=== PATIENT | male | born 1945 | race Caucasian/White ===

== ENCOUNTER 2021-03-09 17:26 | Observation (INO) ==
--- NOTE | 2021-03-09 18:24 | Emergency Department Note ---
GI Bleed HPI <Rashi Holbrook PA-C - Last Filed: 03/09/21 19:49> General Chief complaint: Rectal Bleed Stated complaint: Rectal Bleed Time Seen by Provider: 03/09/21 17:50 Source: patient Mode of arrival: ambulatory Limitations: no limitations History of Present Illness HPI Narrative: Narrative: 75-year-old male with a history of hypothyroidism, osteoarthritis, GERD and hypertension who was seen in the urgent care clinic today represents complaining of bright red blood per rectum. He was seen in the urgent care earlier today and had these findings he refused rectal exam or anoscopy at the time he had a CBC, CMP and PT and INR taken which were all normal. He had a stable hemoglobin. He went home and the clinic called him to check up on him and he said he was getting lightheaded and had more bouts of bright red blood per rectum. He was told to come to the emergency room for further evaluation. He says he has no pain with these bowel movements no pain in his abdomen no nausea, vomiting or fever. He reportedly did have a slightly elevated white count on his CBC. He states he otherwise is in no distress but he has been passing bright red blood per rectum all day. This is never happened to him in the past. He is not on any blood thinners. He has no history of colon cancer. Related Data Home Medications Medication Instructions Recorded Confirmed epinephrine 0.3 mg/0.3 mL 0.3 mg IM [id number] PRN 06/02/15 03/09/21 injection, auto-injector (EpiPen) naproxen sodium 220 mg tablet 440 mg PO Q12H tab 06/02/15 03/09/21 (Aleve) omega-3 fatty acids 1,000 mg 1,000 mg PO QDAY 06/14/15 03/09/21 capsule (Fish Oil Concentrate) vit C 150 mg-vit E 30 unit-lutein 1 cap PO .qd cap 06/14/15 03/10/21 5 [id number] 3 150 mg capsule (Ocuvite) Previous Rx's Medication Instructions Recorded lisinopril 20 mg tablet 20 mg PO QDAY #90 tab 10/26/20 omeprazole 20 mg capsule,delayed See Rx Instructions .ROUTE 10/26/20 release .COMPLEX #90 cap Allergies Allergy/AdvReac Type Severity Reaction Status Date / Time iodine Allergy Intermediate Unknown Verified 03/09/21 13:24 Review of Systems <Rashi Holbrook PA-C - Last Filed: 03/09/21 19:49> ROS ROS Narrative: Narrative: All systems ED: reviewed and negative except as stated. PFSH <Rashi Holbrook PA-C - Last Filed: 03/09/21 19:49> Narrative Patient History Narrative: Narrative: Medical/Surgical/Family History All Active Problems (Updated 03/09/21 @ 19:49 by Rashi Holbrook PA-C) Bright red rectal bleeding (Acute) Rectal bleeding (Acute) Murmur, cardiac (Acute) Well adult exam (Chronic) Hypertriglyceridemia (Chronic) Rheumatoid arthritis, seronegative, multiple sites (Chronic) Osteoarthritis (Chronic) Hypothyroidism (Chronic) Acute low back pain (Chronic) Actinic keratosis (Chronic) Arthritis (Chronic) GERD (gastroesophageal reflux disease) (Chronic) Kidney stones (Chronic) Hypertension (Chronic) Hyperlipidemia (Chronic) Medical History Actinic keratosis Acute low back pain Arthritis Dr. Li GERD (gastroesophageal reflux disease) Hyperlipidemia Hypertension Hypertriglyceridemia Hypothyroidism Kidney stones Osteoarthritis Rectal bleeding Rheumatoid arthritis, seronegative, multiple sites Well adult exam Surgical History No pertinent past surgical history Family History Mother Arthritis Social History Smoking Status: Former smoker Alcohol Intake Frequency: 0-2 drinks per day Substance Use: does not use Exam <Rashi Holbrook PA-C - Last Filed: 03/09/21 19:49> Narrative Narrative: Narrative: Gen: Patient wanted to the ER under his own power and looks well and has good skin color he is in good spirits. Eyes: PERRL, no conjunctival injection , and symmetrical lids. Sclerae non icteric HENMT: Normocephalic Atraumatic head, external nose and ears. Moist MM. CVS: +S1/S2, No murmurs or gallops. Radial pulses 2+ and equal bilat. No swelling RESP: Unlabored respiratory effort . Clear to auscultation bilaterally (CTAB). No noted wheezes rales or ronchi. GI: Nontender/Nondistended (NTND), No focal tenderness Rectal: Crusted red blood on the outside of his anus, Hemoccult was significantly positive, digital rectal exam exposed bright red blood. Anoscopy performed and I believe there was bleeding from internal hemorrhoids but I cannot say with certainty. This is likely a distal source of bleeding. Skin: Warm, Dry . No rashes or lesions . Cap refill less than 2. Psych: Awake, Alert, & Oriented (AAO) x3. Appropriate mood and affect . General Limitations: no limitations Course <Rashi Holbrook PA-C - Last Filed: 03/09/21 19:49> Vital Signs Vital signs: Vital Signs Temperature 37.1 C 03/09/21 17:28 Pulse Rate 85 03/09/21 17:28 Respiratory Rate 18 03/09/21 17:28 Blood Pressure 135/70 03/09/21 17:28 Pulse Oximetry (%) 97 03/09/21 17:28 Temperature 37.1 C 03/09/21 23:46 Pulse Rate 89 03/10/21 01:07 Respiratory Rate 16 03/10/21 01:07 Blood Pressure 162/78 03/10/21 01:07 Pulse Oximetry (%) 98 03/10/21 01:07 MDM <Rashi Holbrook PA-C - Last Filed: 03/09/21 19:49> MDM Narrative Medical decision making narrative: Narrative: Patient appears well and has stable vital signs. He is not tachycardic or hypotensive. He does have bright red blood per rectum. Anoscopy showed what I do believe is distal bleeding from likely internal hemorrhoids but I cannot say this with certainty. CBC, CMP and PT and INR were reordered and we will trend his hemoglobin hematocrit. CBC: In 4 hours hemoglobin dropped a gram and hematocrit dropped 4% CMP: Unremarkable PT/INR: Pending I do believe is likely from internal hemorrhoids but I cannot see that for certainty there could be a malignancy or other insidious process. I talked with Dr. Thompson general surgeon on the phone and I do not feel comfortable with this patient hanging out through the weekend. He graciously agreed to admit the patient and perform colonoscopy in the morning. Transitional orders have been placed, patient is to remain on clear liquid diet until midnight, n.p.o. after midnight, hemoglobin hematocrit at 05, normal s gilma running [address] Thompson will see the patient in the morning. Lab Data Result diagrams: 03/09/21 18:36 03/09/21 18:36 Labs: Lab Results 03/09/21 03/09/21 03/09/21 Range/Units 18:36 18:36 18:36 WBC 10.5 (4.5-11.0) K/mcL RBC 4.05 L (4.63-6.08) M/mcL Hgb 12.8 L (13.7-17.5) g/dL Hct 37.3 L (40.1-51.0) % MCV 92.1 (80.0-100.0) fL MCH 31.6 (26.0-34.0) pg MCHC 34.3 (31.0-36.0) g/dL RDW 12.8 (11.5-14.5) % Plt Count 215 (140-440) K/mcL MPV 9.9 (7.4-10.4) fL Neut % (Auto) 62.7 (38.0-78.0) % Lymph % (Auto) 26.0 (15.5-49.0) % [place] % (Auto) 8.7 (1.0-12.0) % Eos % (Auto) 1.7 (0.0-7.0) % Baso % (Auto) 0.9 (0.0-2.0) % Lymph # (Auto) 2.72 (1.50-4.80) K/mcL [place] # (Auto) 0.91 H (0.10-0.90) K/mcL Eos # (Auto) 0.18 (0.00-0.70) K/mcL Baso # (Auto) 0.09 (0.00-0.30) K/mcL Absolute Neutrophils 6.56 (1.80-8.00) K/mcL PT 14.4 (11.9-14.5) sec INR 1.1 (0.9-1.1) Sodium 135 (133-145) mmol/L Potassium 4.4 (3.3-5.1) mmol/L Chloride 101 (96-108) mmol/L Carbon Dioxide 25 (22-30) mmol/L Anion Gap 9.0 (8.0-16.0) BUN 18 (8-23) mg/dL Creatinine 0.8 (0.7-1.2) mg/dL GFR Calculation 86 Glucose 92 (70-105) mg/dL Calcium 8.3 L (8.6-10.4) mg/dL Total Bilirubin 0.4 (0.1-1.0) mg/dL AST 17 (<40) U/L ALT 13 (<40) U/L Alkaline Phosphatase 81 (39-117) U/L Total Protein 5.3 L (5.9-8.4) gm/dL Albumin 3.6 (3.2-5.2) gm/dL Globulin 1.7 L (2.2-3.7) gm/dL Albumin/Globulin Ratio 2.1 (1.0-2.3) Carcinoembryonic Ag (<3.4) ng/mL 03/09/21 Range/Units 18:36 WBC (4.5-11.0) K/mcL RBC (4.63-6.08) M/mcL Hgb (13.7-17.5) g/dL Hct (40.1-51.0) % MCV (80.0-100.0) fL MCH (26.0-34.0) pg MCHC (31.0-36.0) g/dL RDW (11.5-14.5) % Plt Count (140-440) K/mcL MPV (7.4-10.4) fL Neut % (Auto) (38.0-78.0) % Lymph % (Auto) (15.5-49.0) % [place] % (Auto) (1.0-12.0) % Eos % (Auto) (0.0-7.0) % Baso % (Auto) (0.0-2.0) % Lymph # (Auto) (1.50-4.80) K/mcL [place] # (Auto) (0.10-0.90) K/mcL Eos # (Auto) (0.00-0.70) K/mcL Baso # (Auto) (0.00-0.30) K/mcL Absolute Neutrophils (1.80-8.00) K/mcL PT (11.9-14.5) sec INR (0.9-1.1) Sodium (133-145) mmol/L Potassium (3.3-5.1) mmol/L Chloride (96-108) mmol/L Carbon Dioxide (22-30) mmol/L Anion Gap (8.0-16.0) BUN (8-23) mg/dL Creatinine (0.7-1.2) mg/dL GFR Calculation Glucose (70-105) mg/dL Calcium (8.6-10.4) mg/dL Total Bilirubin (0.1-1.0) mg/dL AST (<40) U/L ALT (<40) U/L Alkaline Phosphatase (39-117) U/L Total Protein (5.9-8.4) gm/dL Albumin (3.2-5.2) gm/dL Globulin (2.2-3.7) gm/dL Albumin/Globulin Ratio (1.0-2.3) Carcinoembryonic Ag 1.8 (<3.4) ng/mL ED POC Tests ED POC Tests: JORGE - SARS Antigen Negative Discharge Plan Patient/Caregiver Discharge Instructions Pt seen by AMPOULE INSPECTOR/PA only: Yes Clinical Impression: Bright red rectal bleeding Patient Disposition: Xfer As Inpt ([facility]) Discharge Date/Time: 03/09/21 22:05 Discharge Location: [facility]
[2021-03-09 19:10] LABS: Basophils # (Auto) 0.09 K/mcL (0.00-0.30); Basophils % (Auto) 0.9 % (0.0-2.0); Eosinophils # (Auto) 0.18 K/mcL (0.00-0.70); Eosinophils % (Auto) 1.7 % (0.0-7.0); Hematocrit 37.3 % (40.1-51.0); Hemoglobin 12.8 g/dL (13.7-17.5); Lymphocytes # (Auto) 2.72 K/mcL (1.50-4.80); Mean Cell Volume 92.1 fL (80.0-100.0); Mean Corpuscular HGB Conc 34.3 g/dL (31.0-36.0); Mean Platelet Volume 9.9 fL (7.4-10.4); Monocytes # (Auto) 0.91 K/mcL (0.10-0.90); Monocytes % (Auto) 8.7 % (1.0-12.0); Neutrophils % (Auto) 62.7 % (38.0-78.0); Platelet Count 215 K/mcL (140-440); RBC 4.05 M/mcL (4.63-6.08); Red Cell Distribution Width 12.8 % (11.5-14.5); WBC 10.5 K/mcL (4.5-11.0)
[2021-03-09 19:35] LABS: ALT/SGPT 13 U/L (<40); AST/SGOT 17 U/L (<40); Albumin 3.6 gm/dL (3.2-5.2); Albumin/Globulin Ratio 2.1 (1.0-2.3); Alkaline Phosphatase 81 U/L (39-117); Bilirubin,Total 0.4 mg/dL (0.1-1.0); Blood Urea Nitrogen 18 mg/dL (8-23); Calcium 8.3 mg/dL (8.6-10.4); Carbon Dioxide 25 mmol/L (22-30); Chloride 101 mmol/L (96-108); Globulin 1.7 gm/dL (2.2-3.7); Glomerular Filtration Rate 86; Glucose 92 mg/dL (70-105)
[2021-03-09] MEDS ORDERED: ACETAMINOPHEN 325 MG TABLET PO PRN (19:45)
[2021-03-09] MEDS ORDERED: morphine 2 MG/ML VIAL IV PRN (19:45)
[2021-03-09] MEDS ORDERED: ONDANSETRON 4 MG/2 ML VIAL IV PRN (19:45)
[2021-03-09 20:15] LABS: INR 1.1 (0.9-1.1); Prothrombin Time 14.4 sec (11.9-14.5)
[2021-03-09] MEDS ORDERED: PEG 3350/NA SULF,BICARB,CL/KCL 4,000 ML ORAL.SOL PO ONE (20:27)
[2021-03-09 21:10] LABS: Carcinoembryonic Antigen 1.8 ng/mL (<3.4)
[2021-03-09] MEDS: 0.9 % SODIUM CHLORIDE 1,000 ML IV SCH (22:37)
[2021-03-09] MEDS: hydrALAZINE 20 MG/ML VIAL IV PRN (23:44)
[2021-03-09] MEDS ORDERED: hydrALAZINE 20 MG/ML VIAL ONE (23:46)
[2021-03-10] MEDS: 0.9 % SODIUM CHLORIDE 1,000 ML IV SCH ×5 (01:31→22:49)
[2021-03-10] MEDS: hydrALAZINE 20 MG/ML VIAL IV PRN ×2 (04:24→18:53)
[2021-03-10] MEDS ORDERED: hydrALAZINE 20 MG/ML VIAL ONE (04:27)
[2021-03-10 05:33] LABS: Hematocrit 40.6 % (40.1-51.0); Hemoglobin 14.1 g/dL (13.7-17.5)
[2021-03-10] MEDS: PANTOPRAZOLE 40 MG VIAL IV SCH ×2 (06:58→16:37)
[2021-03-10] MEDS ORDERED: LIDOCAINE HCL/PF 100 MG/5 ML SYRINGE IV ONE (07:55)
[2021-03-10] MEDS ORDERED: KETAMINE 50 MG/ML Syringe (ANEST) IV ONE (07:55)
[2021-03-10] MEDS ORDERED: PROPOFOL 200 MG/20 ML VIAL IV ONE (07:55)
--- NOTE | 2021-03-10 07:56 | XRay Report ---
HISTORY: Preop for rectal bleeding FINDINGS: A generalized haziness is present in the lung parenchyma bilaterally, most apparent in the right lower lobe. No prior study is available for comparison. Lung volumes are normal. There is no lobar consolidation or pleural effusion. The heart size is normal. Pulmonary vessels are difficult to evaluate due to the diffuse pulmonary disease. IMPRESSION: Vague alveolar opacities in both lungs which could be due to inflammation, edema or fibrosis. Interpreted and Authenticated by: Francisco Tyler 03/10/21
--- NOTE | 2021-03-10 08:02 | EKG ---
[facility] Test Date: 2021-03-09 Pat Name: Marcelo Rojo Department: ED Room: Gender: Male Adjutant General: se : 1945 Requested By: Bryan Thompson Order Number: [id number] Reading MD: Hiro Hess Measurements Intervals [place] Rate: 64 P: 62 NH: 59 QRS: 15 QRSD: 90 T: 16 QT: 418 QTc: 432 Interpretive Statements Sinus rhythm Artifact in lead(s) I,II,III,aVR,aVL,aVF Electronically Signed On 03-10-2021 8:01:55 PST by Hiro Hess /store/M0/[id number]/ecg/[id number].pdf
[2021-03-10] MEDS ORDERED: MAGNESIUM CITRATE 300 ML ORAL.SOL PO ONE ×2 (12:27→13:28)
--- NOTE | 2021-03-10 17:03 | General Surg History&Physical ---
HPI History of Present Illness Patient information: Note initiated : 03/10/21 at 4:57 pm Service Date, if different from initiated Date: [] Patient: Marcelo Rojo a 75 y/o M admitted on 03/09/21 for Rectal Bleed. Chief Complaint: [] Chief complaint: Rectal bleeding History of present illness: Mr. Rojo is a 75 year old M admitted for evaluation of rectal bleeding. The patient has significant degree of dementia and has poor memory of the past few days. He has had intermittent rectal bleeding which prompted him to be seen in the urgent care facility. He refused digital rectal exam and was discharged home since his labs were normal. After getting home he had multiple episodes of bright red rectal bleeding and return to the emergency room. When evaluated in the emergency room he had a large volume of blood in his rectum but no actual mass was seen. He had had a slight drop in his hemoglobin. He had a small bowel movement which only had specks of bright red blood. Patient is admitted and will have bowel prep and colonoscopy Review of Systems ROS unobtainable: due to mental status (Patient has poor memory of recent events and is not aware of his medical conditions.) PFSH PFSH All Active Problems Bright red rectal bleeding (Acute) Rectal bleeding (Acute) Murmur, cardiac (Acute) Well adult exam (Chronic) Hypertriglyceridemia (Chronic) Rheumatoid arthritis, seronegative, multiple sites (Chronic) Osteoarthritis (Chronic) Hypothyroidism (Chronic) Acute low back pain (Chronic) Actinic keratosis (Chronic) Arthritis (Chronic) GERD (gastroesophageal reflux disease) (Chronic) Kidney stones (Chronic) Hypertension (Chronic) Hyperlipidemia (Chronic) Medical History Actinic keratosis Acute low back pain Arthritis Dr. Li GERD (gastroesophageal reflux disease) Hyperlipidemia Hypertension Hypertriglyceridemia Hypothyroidism Kidney stones Osteoarthritis Rectal bleeding Rheumatoid arthritis, seronegative, multiple sites Well adult exam Surgical History No pertinent past surgical history Family History Mother Arthritis Social History marital status: occupational status: retired occupation: [employer] Worker leisure activities: other alcohol intake frequency: 0-2 drinks per day substance use type: does not use MEDS/ALLERGIES Home Medications and Allergies Home Medications Medication Instructions Recorded Confirmed Type epinephrine 0.3 mg/0.3 mL 0.3 mg IM [id number] PRN 06/02/15 03/09/21 History injection, auto-injector (EpiPen) naproxen sodium 220 mg tablet 440 mg PO Q12H tab 06/02/15 03/09/21 History (Aleve) omega-3 fatty acids 1,000 mg 1,000 mg PO QDAY 06/14/15 03/09/21 History capsule (Fish Oil Concentrate) vit C 150 mg-vit E 30 unit-lutein 1 cap PO .qd cap 06/14/15 03/10/21 History 5 fx-svbnedve-blyop 3 150 mg capsule (Ocuvite) lisinopril 20 mg tablet 20 mg PO QDAY #90 tab 10/26/20 03/09/21 Rx omeprazole 20 mg capsule,delayed See Rx Instructions .ROUTE 10/26/20 03/09/21 Rx release .COMPLEX #90 cap Allergies Allergy/AdvReac Type Severity Reaction Status Date / Time iodine Allergy Intermediate Unknown Verified 03/09/21 13:24 Physical Examination Vital Signs Vital signs: Temp Pulse Resp BP Pulse Ox 97.2 F 86 18 162/75 96 03/10/21 12:20 03/10/21 12:20 03/10/21 12:20 03/10/21 12:20 03/10/21 12:20 General physical appearance General physical exam: well nourished, no distress, no pain and chronically ill Eyes Eye exam: PERRL and normal ocular movement ENT ENT exam: normal mucosa and decreased hearing Head Head exam IM: Present atraumatic, normal inspection and normocephalic Neck Neck exam: no masses, no bruits, trachea midline, no lymphadenopathy and no venous distension Cardiovascular Cardiovascular exam IM: Present normal rate and rhythm, RRR, +S1, +S2 and systol ic murmur; Absent JVD Intensity IM: 2/6 Respiratory Respiratory exam: normal expansion, normal respiratory effort and clear to auscultation Abdomen Abdomen: Present soft, non tender, bowel sounds (Normal bowel sounds) and distended; Absent organomegaly, masses or guarding Integumentary Integumentary: Present no rash, no growths and no abnormal pigmentation Neurologic Neurologic: Present normal coordination, normal sensation, confused and memory loss; Absent disoriented Musculoskeletal Musculoskeletal: Present normal gait and normal posture Psychiatric Psychiatric: Present oriented to person; Absent oriented to time, oriented to place or memory intact Results Labs Result diagrams: 03/10/21 05:08 03/09/21 18:36 Labs: Abnormal lab results 03/09/21 03/09/21 Range/Units 18:36 18:36 RBC 4.05 L (4.63-6.08) M/mcL Hgb 12.8 L (13.7-17.5) g/dL Hct 37.3 L (40.1-51.0) % [place] # (Auto) 0.91 H (0.10-0.90) K/mcL Calcium 8.3 L (8.6-10.4) mg/dL Total Protein 5.3 L (5.9-8.4) gm/dL Globulin 1.7 L (2.2-3.7) gm/dL Diabetes panel 03/09/21 Range/Units 18:36 Sodium 135 (133-145) mmol/L Potassium 4.4 (3.3-5.1) mmol/L Chloride 101 (96-108) mmol/L Carbon Dioxide 25 (22-30) mmol/L BUN 18 (8-23) mg/dL Creatinine 0.8 (0.7-1.2) mg/dL Glucose 92 (70-105) mg/dL Calcium 8.3 L (8.6-10.4) mg/dL AST 17 (<40) U/L ALT 13 (<40) U/L Alkaline Phosphatase 81 (39-117) U/L Total Protein 5.3 L (5.9-8.4) gm/dL Albumin 3.6 (3.2-5.2) gm/dL Calcium panel 03/09/21 Range/Units 18:36 Calcium 8.3 L (8.6-10.4) mg/dL Albumin 3.6 (3.2-5.2) gm/dL Pituitary panel 03/09/21 Range/Units 18:36 Sodium 135 (133-145) mmol/L Potassium 4.4 (3.3-5.1) mmol/L Chloride 101 (96-108) mmol/L Carbon Dioxide 25 (22-30) mmol/L BUN 18 (8-23) mg/dL Creatinine 0.8 (0.7-1.2) mg/dL Glucose 92 (70-105) mg/dL Calcium 8.3 L (8.6-10.4) mg/dL Adrenal panel 03/09/21 Range/Units 18:36 Sodium 135 (133-145) mmol/L Potassium 4.4 (3.3-5.1) mmol/L Chloride 101 (96-108) mmol/L Carbon Dioxide 25 (22-30) mmol/L BUN 18 (8-23) mg/dL Creatinine 0.8 (0.7-1.2) mg/dL Glucose 92 (70-105) mg/dL Calcium 8.3 L (8.6-10.4) mg/dL Total Bilirubin 0.4 (0.1-1.0) mg/dL AST 17 (<40) U/L ALT 13 (<40) U/L Alkaline Phosphatase 81 (39-117) U/L Total Protein 5.3 L (5.9-8.4) gm/dL Albumin 3.6 (3.2-5.2) gm/dL All other labs normal. A/P Narrative A/P Narrative: Patient will have bowel prep and plan is for colonoscopy. He will be transfused as needed but his hemoglobin remained stable. Time Spent With Patient Time: Total time spent is greater than 50% in coordination of care (as documented) at patient's floor/unit and/or counseling patient:
--- NOTE | 2021-03-10 17:05 | General Surgery Progress Note ---
SUBJECTIVE Subjective Patient information: Note initiated : 03/10/21 at 5:03 pm Service Date, if different from initiated Date: [] Patient: Marcelo Rojo 75 y/o M admitted on 03/09/21 for Rectal Bleed. Chief Complaint: [] Principal diagnosis: Rectal bleeding Interval history: Patient did not have adequate results for colonoscopy so it was delayed and he will have more bowel prep tonight with enemas in the morning there is no major active bleeding at this time Constitutional Vitals: Vital Signs Temp Pulse Resp BP Pulse Ox 97.2 F 86 18 162/75 96 03/10/21 12:20 03/10/21 12:20 03/10/21 12:20 03/10/21 12:20 03/10/21 12:20 Period Temp Pulse Resp BP Sys/Begum Pulse Ox Last 24 Hr 97.2 F-98.9 F 64-89 15-18 134-188/66-94 95-98 Intake and Output 03/10/21 03/10/21 03/10/21 05:59 13:59 21:59 Intake Total 2000 Output Total 3900 Balance -3900 2000 Weight 175 lb Intake & Output: Intake & Output 03/10/21 03/10/21 03/10/21 05:59 13:59 21:59 Intake Total 2000 Output Total 3900 Balance -3900 2000 Weight 175 lb Intake: IV 2000 Sodium Chloride 0.9% 1,000 ml @ 2000 150 mls/hr IV .[id number] [facility] Rx#: [id number] Output: Urine/Stool Mix 3900 Other: Stool Color Brown Stool Consistency Liquid # Voids 2 A/P Assessment and plan (1) Bright red rectal bleeding: Status: Acute (2) GERD (gastroesophageal reflux disease): Status: Chronic Qualifiers: Esophagitis presence: esophagitis presence not specified Qualified Code(s): K21.9 - Gastro-esophageal reflux disease without esophagitis (3) Hypertension: Status: Chronic Qualifiers: Hypertension type: essential hypertension Qualified Code(s): I10 - Essential (primary) hypertension Narrative A/P Narrative: Citrate of magnesia 2 bottles tonight Soapsuds enema in the morning Colonoscopy in the morning Time Spent With Patient Time: Total time spent is greater than 50% in coordination of care (as documented) at patient's floor/unit and/or counseling patient:
[2021-03-10] MEDS ORDERED: diphenhydrAMINE 50 MG/ML VIAL IV PRN (22:44)
[2021-03-10] MEDS ORDERED: diphenhydrAMINE 50 MG/ML VIAL ONE (22:53)
[2021-03-11] MEDS: 0.9 % SODIUM CHLORIDE 1,000 ML IV SCH ×2 (05:40→10:52)
[2021-03-11] MEDS: PANTOPRAZOLE 40 MG VIAL IV SCH (07:15)
[2021-03-11] MEDS ORDERED: MAGNESIUM HYDROXIDE 30 ML ORAL.SUSP PO ONE (09:07)
[2021-03-11] MEDS ORDERED: HYDROmorphone 1 MG/ML SYRINGE IM ONE (09:07)
--- NOTE | 2021-03-11 10:37 | Brief Operative Note ---
Brief Operative Note Date of procedure: 03/11/21 Pre-op diagnosis: Rectal bleeding Post-op diagnosis: other (Diverticulosis; internal hemorrhoids) Procedure: Colonoscopy to cecum Grafts/Implants: No Anesthesia: MAC Findings: Diffuse pandiverticulosis without bleeding Internal hemorrhoids without bleeding Complications: none Surgeon: Bryan Thompson Specimens Removed/Pathology: none sent Condition: stable Disposition: floor
[2021-03-11] MEDS ORDERED: SIMETHICONE 80 MG TAB.CHEW CHEWED SCH (12:00)
[2021-03-11] MEDS ORDERED: LISINOPRIL 20 MG TABLET PO SCH (12:00)
[2021-03-11] MEDS ORDERED: PANTOPRAZOLE 40 MG TABLET PO SCH (17:00)
--- NOTE | 2021-03-16 14:26 | Colonoscopy Procedure Note ---
PREOPERATIVE DIAGNOSIS: Rectal bleeding. POSTOPERATIVE DIAGNOSES: Diverticulosis and internal hemorrhoids. No evidence of bleeding. PROCEDURE: Colonoscopy to the cecum. SURGEON: Bryan Thompson M.D. DESCRIPTION OF PROCEDURE: Under general anesthesia, the patient turned to the left lateral decubitus position. Time-out procedure was carried out as per protocol. Scope was introduced and maneuvered to the cecum. Cecum was identified by the opening of the appendix, ileocecal valve, and confluence of the taenia. Cecum was normal. The ascending colon was unremarkable except for extensive diverticulosis. Transverse and descending colon had extensive wide mouth diverticula, but no abnormality other than this. There was no evidence of old or fresh bleeding. There was no bleeding from the diverticula noted. Rectum was normal except for internal hemorrhoids. Retroflex view confirmed the presence of the hemorrhoids. They were enlarged, but were not bleeding. The patient tolerated the procedure well. Scope was removed. The patient was awakened and transferred to the postanesthetic care unit in satisfactory condition. LCS:yfn Job ID: [id number] Doc ID: [id number] Bryan Thompson M.D.
== END 2021-03-11 15:05 | disposition home or self-care (01) ==
LOC: ED 17:26 → MEDSUR 17:26 → UNDODISOB 03-11 15:05
PROVIDERS: ADMIT Family Medicine Adult Medicine; ATTEND Family Medicine Adult Medicine